=== PATIENT | female | born 1960 | race Caucasian/White ===

== ENCOUNTER 2021-12-22 06:15 | Day surgery (SDC) | payer MEDICARE, OTHER, MEDICAID ==
[~2021-12-22 06:15] MED LIST: Acetaminophen 325 MG Tab PO SCH; Albuterol 0.083% 2.5 MG/3 ML Neb Soln NEB SCH; Lactated Ringers 1,000 ML IV SCH; Lidocaine 1%/Sod Bicarbonate in NS 8.4% 1 ML Syringe IDERM PRN; Morphine 8 MG, EPINEPHrine 0.3 MG, Cefuroxime 750 MG, Ketorolac 30 MG, Sodium Chloride ... PRN; Pregabalin 25 MG Cap PO SCH; Scopolamine 1.5 MG Transdermal Patch TOP SCH; Sodium Chloride 0.9% 10 ML Syringe FLUSH PRN; Sodium Chloride 0.9% 10 ML Syringe FLUSH SCH; oxyCODONE ER 10 MG TAB.ER PO SCH
[2021-12-22] MEDS ORDERED: Midazolam 1 MG/ML 2 ML SDV ONE (06:47)
[2021-12-22] MEDS ORDERED: Ondansetron 4 MG/2 ML SDV ONE (06:47)
[2021-12-22] MEDS ORDERED: Propofol 200 MG/20 ML SDV ONE ×2 (06:47→08:06)
[2021-12-22] MEDS ORDERED: fentaNYL 100 MCG/2 ML SDV ONE (06:47)
[2021-12-22] MEDS ORDERED: ceFAZolin 1 GM Vial ONE (06:47)
[2021-12-22] MEDS: Vancomycin 1 GM SDV ONE ×2 (07:53→08:24)
[2021-12-22] MEDS: Morphine 8 MG, EPINEPHrine 0.3 MG, Cefuroxime 750 MG, Ketorolac 30 MG, Sodium Chloride ... PRN ×10 (07:53→08:15)
[2021-12-22] MEDS ORDERED: Ropivacaine 0.5% 5 MG/ML 30 ML SDV ONE (08:48)
[2021-12-22] MEDS ORDERED: EPINEPHrine 1 MG/ML SDV ONE (08:48)
[2021-12-22] MEDS ORDERED: Ondansetron 4 MG/2 ML SDV IVPUSH PRN (09:09)
[2021-12-22] MEDS ORDERED: HYDROmorphone 0.5 MG/0.5 ML Syringe IVPUSH PRN (09:09)
[2021-12-22] MEDS ORDERED: fentaNYL 100 MCG/2 ML SDV IVPUSH PRN (09:09)
[2021-12-22] MEDS ORDERED: Acetaminophen/HYDROcodone 325-10 MG Tab PO ONE (09:14)
== END 2021-12-22 12:29 | disposition home or self-care (01) ==
LOC: JD.SDS 06:15
PROVIDERS: ATTEND Orthopaedic Surgery
DX: M17.12 Unilateral primary osteoarthritis, left knee (principal); E78.1 Pure hyperglyceridemia; K21.9 Gastro-esophageal reflux disease without esophagitis; I10 Essential (primary) hypertension; E03.9 Hypothyroidism, unspecified; G47.33 Obstructive sleep apnea (adult) (pediatric); E11.42 Type 2 diabetes mellitus with diabetic polyneuropathy; Z98.890 Other specified postprocedural states; Z88.8 Allergy status to other drugs, medicaments and biological substances; Z88.0 Allergy status to penicillin; Z79.890 Hormone replacement therapy; Z79.899 Other long term (current) drug therapy; Z87.891 Personal history of nicotine dependence
CPT/HCPCS: 0055T; 27447; 73560; 97116; 97161; A9270; C1713; C1776; J0171; J0690; J0697; J1885; J2250; J2270; J2405; J2704; J2795; J3010; J3370; J7120; 01402; 64447; 76942

== ENCOUNTER 2023-04-01 09:33 | Emergency (ER) | payer MEDICARE, OTHER ==
[2023-04-01] MEDS ORDERED: Ibuprofen 600 MG Tab PO ONE (10:48)
== END 2023-04-01 11:45 | disposition home or self-care (01) ==
LOC: JD.ED 09:33
DX: S62.102A Fracture of unspecified carpal bone, left wrist, initial encounter for closed fracture (principal); I25.2 Old myocardial infarction; E78.00 Pure hypercholesterolemia, unspecified; K21.9 Gastro-esophageal reflux disease without esophagitis; I10 Essential (primary) hypertension; E03.9 Hypothyroidism, unspecified; Z86.718 Personal history of other venous thrombosis and embolism; Z88.0 Allergy status to penicillin; Z88.1 Allergy status to other antibiotic agents; Z79.899 Other long term (current) drug therapy
CPT/HCPCS: 29125; 73110; 99283; A9270; 99282

== ENCOUNTER → 2023-05-29 | Day surgery (SDC) | payer MEDICARE, OTHER ==
[~2023-05-29] MED LIST changes: -Albuterol 0.083% 2.5 MG/3 ML Neb Soln NEB SCH; +EPINEPHrine 1 MG/ML SDV ONE; +HYDROmorphone 0.5 MG/0.5 ML Syringe IVPUSH PRN; -Lidocaine 1%/Sod Bicarbonate in NS 8.4% 1 ML Syringe IDERM PRN; +Lidocaine 2% 100 MG/5 ML Syringe ONE; +Midazolam 1 MG/ML 2 ML SDV ONE; -Morphine 8 MG, EPINEPHrine 0.3 MG, Cefuroxime 750 MG, Ketorolac 30 MG, Sodium Chloride ... PRN; +Ondansetron 4 MG/2 ML SDV IVPUSH PRN; +Ondansetron 4 MG/2 ML SDV ONE; +Propofol 200 MG/20 ML SDV ONE; +Ropivacaine 0.5% 5 MG/ML 30 ML SDV ONE; -Scopolamine 1.5 MG Transdermal Patch TOP SCH; -Sodium Chloride 0.9% 10 ML Syringe FLUSH SCH; +ceFAZolin 2 GM Vial ONE; +fentaNYL 100 MCG/2 ML SDV IVPUSH PRN; +fentaNYL 100 MCG/2 ML SDV ONE
[2023-05-29] MEDS: Tranexamic Acid 1,000 MG/10 ML Vial ONE ×2 (14:11→14:32)
[2023-05-29] MEDS: Morphine 8 MG, EPINEPHrine 0.3 MG, Cefuroxime 750 MG, Ketorolac 30 MG, Sodium Chloride ... PRN ×10 (14:11→14:42)
[2023-05-29] MEDS: Vancomycin 1 GM SDV ONE ×2 (14:12→14:32)
== END | disposition home or self-care (01) ==
LOC: JD.SDS 08:15
PROVIDERS: ATTEND Orthopaedic Surgery
DX: M17.11 Unilateral primary osteoarthritis, right knee (principal); J45.909 Unspecified asthma, uncomplicated; E03.9 Hypothyroidism, unspecified; G89.29 Other chronic pain; K21.9 Gastro-esophageal reflux disease without esophagitis; G47.33 Obstructive sleep apnea (adult) (pediatric); Z99.81 Dependence on supplemental oxygen; E11.42 Type 2 diabetes mellitus with diabetic polyneuropathy; I10 Essential (primary) hypertension; E78.2 Mixed hyperlipidemia; E78.1 Pure hyperglyceridemia; Z98.890 Other specified postprocedural states; Z87.891 Personal history of nicotine dependence; R35.1 Nocturia; D75.1 Secondary polycythemia; Z98.84 Bariatric surgery status; K21.00 Gastro-esophageal reflux disease with esophagitis, without bleeding; M19.90 Unspecified osteoarthritis, unspecified site; I25.10 Atherosclerotic heart disease of native coronary artery without angina pectoris; Z91.048 Other nonmedicinal substance allergy status; Z88.0 Allergy status to penicillin; Z88.8 Allergy status to other drugs, medicaments and biological substances
CPT/HCPCS: 01402; 64447; 73560-26-RT; 73560-RT; 82947; 97116-GP; 97161-GP; A9270-GY; C1713; C1776; J0171; J0690; J0697; J1885; J2250; J2270; J2405; J2704; J2795; J3010; J3370; J3490; J7030; J7120

== ENCOUNTER 2025-02-17 13:54 | Emergency (ER) | payer MEDICARE, OTHER ==
[2025-02-17] MEDS: Lidocaine 1% 10 ML MDV INJECT ONE (15:31)
== END 2025-02-17 16:35 | disposition home or self-care (01) ==
LOC: JD.ED 13:54
DX: S91.311A Laceration without foreign body, right foot, initial encounter (principal); I10 Essential (primary) hypertension; E78.00 Pure hypercholesterolemia, unspecified; K21.9 Gastro-esophageal reflux disease without esophagitis; E03.9 Hypothyroidism, unspecified; Z79.899 Other long term (current) drug therapy; Z79.890 Hormone replacement therapy; Z91.018 Allergy to other foods; Z88.8 Allergy status to other drugs, medicaments and biological substances; Z88.1 Allergy status to other antibiotic agents; Z91.048 Other nonmedicinal substance allergy status; W20.8XXA Other cause of strike by thrown, projected or falling object, initial encounter
CPT/HCPCS: 12002; 99282; J2003; 99283